=== PATIENT | male | born 1980 | race Caucasian/White ===

== ENCOUNTER 2018-11-01 04:13 | Emergency (ER) | payer MEDICAID, OTHER ==
[~2018-11-01] VITALS: Ht 188 cm; Wt 86.5 kg
[~2018-11-01 04:13] MED LIST: AMOX1TAB10 PO; HYDR-3980 PO
[2018-11-01 04:20] VITALS: BP 146/91; PULSE 100; RESP 20; Ht 188 cm; Wt 86.5 kg
[2018-11-01] MEDS ORDERED: HYDR-4011 PO (07:27)
[2018-11-01] MEDS ORDERED: AMOX1TAB10 PO (07:27)
[2018-11-01] MEDS ORDERED: HYDROCODONE/APAP (5/325) TAB PO ONE (07:30)
--- NOTE | 2018-11-01 07:35 | ERD ---
ER Documentation Chief Complaint Chief Complaint left lower toothache x 2 days HPI This is a 38-year-old male with no severe past medical history who is brought to the ED with complaints of left lower molar pain ongoing for the past 3 days. Pain is described as sharp and throbbing. He denies any radiation of pain. He denies any associated fevers. Denies any drooling, difficulty swallowing or breathing. He states he was seen here 4 months ago for similar symptoms. He has not yet followed up with the dentist but plans to in the next few days. No other complaints. No history of diabetes or any other significant medical history. ROS All systems reviewed and are negative except as per history of present illness. Medications Home Meds Active Scripts Amoxicillin/Potassium Clav (Amox-Clav 875-125 mg Tablet) 875-125 mg Tab, 1 TAB PO BID for 7 Days, #14 TAB Prov:ROSANGELAIGRABHIJIT SMITH N PA-C 11/01/18 Hydrocodone/Acetaminophen ([place] 5-325 Tablet) 1 Each Tablet, 1 TAB PO Q6H PRN for PAIN, #7 TAB Prov:ROSANGELAIGRSUMITANABHIJIT N PA-C 11/01/18 Amoxicillin/Potassium Clav (Amox-Clav 875-125 mg Tablet) 875-125 mg Tab, 1 TAB PO BID for 10 Days, #20 TAB Prov:KAREN MELO MD 06/19/18 Hydrocodone/Acetaminophen ([place] 10-325 Tablet) 1 Each Tablet, 1 TAB PO Q6H PRN for PAIN, #20 TAB Prov:KAREN MELO MD 06/19/18 Allergies Allergies: Coded Allergies: No Known Allergy (Unverified , 06/19/18) PMhx/Soc Hx Alcohol Use: No Hx Substance Use: Yes (MARIJUANA) Hx Tobacco Use: Yes Physical Exam Vitals Vital Signs Date Temp Pulse Resp B/P (MAP) Pulse Ox O2 O2 Flow FiO2 Time Delivery Rate 11/01/18 97.2 100 20 146/91 97 04:20 (109) Physical Exam Const: No acute distress Head: Atraumatic Eyes: Normal Conjunctiva ENT: Normal External Ears, Nose and Mouth. + Moderate tenderness to percussion of tooth #31. Very Poor dentition. No periapical abscess seen. No trismus. No submandibular swelling. Neck: Full range of motion. No meningismus. No lymphadenopathy. Skin: No petechiae or rashes Neur: Awake and alert Psych: Normal Mood and Affect Results 24 hrs Current Medications Medications Dose Sig/Honey Start Time Status Last (Trade) Ordered Route PRN Stop Time Admin Dose Reason Admin 1 tab ONCE ONCE 11/01/18 DC 11/01/18 Acetaminophen PO 07:30 08:27 / 11/01/18 07:31 Hydrocodone Bitart ([place] (5/325)) Procedures/MDM ED COURSE: The patient was given [place]. Patient continued to complain of pain and requesting for Dilaudid. He was unhappy with my evaluation and was cursing upon discharge. MEDICAL DECISION MAKING: This is a 38-year-old male who presents with left lower dental pain. Vital signs are stable and he has no fever here. He is not hypoxic and in no respiratory distress. He has no signs of an apical or periapical abscess on physical exam. Clinical presentation not consistent with Charles's angina, osteomyelitis or any other deep space tissue infection. Will treat prophylactically with antibiotics and pain medications. Patient was asking for Dilaudid. I did not think this was appropriate as patient was already given [place] here. He was given a referral to a dentist to follow-up with in the next few days. Strict return precautions were discussed. Smoking Cessation Therapy: Pt. was lectured for greater than 3 minutes on the health risks of continued smoking and the benefits of cessation. Blood Pressure Assessment: Patient's blood pressure was elevated (>120/80) but appears stable without evidence of hypertension emergency or urgency. The patient was counseled about the risks of hypertension and urged to pursue outpatient monitoring and therapy within a week with their primary care physician. PRESCRIPTIONS: [place], Augmentin SPECIALIST FOLLOW UP RECOMMENDED: Dentist Departure Diagnosis: Primary Impression: Toothache Condition: Stable Patient Instructions: Dental Pain Referrals: NO PRIMARY,CARE PHYSICIAN (PCP) COMMUNITY CLINICS YOU HAVE RECEIVED A MEDICAL SCREENING EXAM AND THE RESULTS INDICATE THAT YOU DO NOT HAVE A CONDITION THAT REQUIRES URGENT TREATMENT IN THE EMERGENCY DEPARTMENT. FURTHER EVALUATION AND TREATMENT OF YOUR CONDITION CAN WAIT UNTIL YOU ARE SEEN IN YOUR DOCTORS OFFICE WITHIN THE NEXT 1-2 DAYS. IT IS YOUR RESPONSIBILITY TO MAKE AN APPOINTMENT FOR FOLOW-UP CARE. IF YOU HAVE A PRIMARY DOCTOR --you should call your primary doctor and schedule an appointment IF YOU DO NOT HAVE A PRIMARY DOCTOR YOU CAN CALL OUR PHYSICIAN REFERRAL HOTLINE AT IF YOU CAN NOT AFFORD TO SEE A PHYSICIAN YOU CAN CHOSE FROM THE FOLLOWING [facility] [address] [place] [facility] [address] [facility] [address] [facility] [address] [facility] [address] [facility]. [facility] [address] [facility]. [facility] YOU HAVE RECEIVED A MEDICAL SCREENING EXAM AND THE RESULTS INDICATE THAT YOU DO NOT HAVE A CONDITION THAT REQUIRES URGENT TREATMENT IN THE EMERGENCY DEPARTMENT. FURTHER EVALUATION AND TREATMENT OF YOUR CONDITION CAN WAIT UNTIL YOU ARE SEEN IN YOUR DOCTORS OFFICE WITHIN THE NEXT 1-2 DAYS. IT IS YOUR RESPONSIBILITY TO MAKE AN APPOINTMENT FOR FOLOW-UP CARE. IF YOU HAVE A PRIMARY DOCTOR --you should call your primary doctor and schedule and appointment IF YOU DO NOT HAVE A PRIMARY DOCTOR YOU CAN CALL OUR PHYSICIAN REFERRAL HOTLINE AT . IF YOU CAN NOT AFFORD TO SEE A PHYSICIAN YOU CAN CHOSE FROM THE FOLLOWING [facility]: [facility] [address] [place] [address] [facility] [address] [place] [address] [facility] [address] [place] [address] [facility] DENTIST ([facility] walk in clinic) Additional Instructions: Do salt water gargles at least 2 times a day. Take the pain medication as needed, and finish the entire course of antibiotics. Please make sure you follow-up with a dentist as soon as possible for your dental pain. If the symptoms get worse and your provider is unavailable, return to the Emergency Department immediately. ABHIJIT TSE PA-C Nov 01, 2018 07:35
== END 2018-11-01 08:55 | disposition home or self-care (01) ==
LOC: FTE 04:13
DX: K08.89 Other specified disorders of teeth and supporting structures (principal); Z87.891 Personal history of nicotine dependence
CPT/HCPCS: 99283

== ENCOUNTER 2018-12-29 00:26 | Inpatient (IN) | payer OTHER ==
[~2018-12-29] VITALS: Ht 188 cm; Wt 95.9 kg
[~2018-12-29 00:26] MED LIST changes: +HYDR-4011 PO
[2018-12-29] MEDS ORDERED: ACETAMINOPHEN 325 MG TAB PO PRN ×2 (01:00→05:30)
[2018-12-29] MEDS ORDERED: ONDANSETRON 4 MG INJ IV PRN ×2 (01:00→05:30)
[2018-12-29] MEDS ORDERED: ONDANSETRON 4 MG INJ IV ONE (01:20)
[2018-12-29] MEDS ORDERED: morphine 4 MG/ML VIAL IV ONE (01:20)
--- NOTE | 2018-12-29 01:37 | ERD ---
ER Documentation Chief Complaint Chief Complaint BIB private EMS for facial abscess HPI This is a 38-year-old male with no reported past medical history who is presenting from [facility], accepted by the panel service here for admission for further assessment of a left facial abscess likely related to a dental abscess of tooth 19. The patient reports 1 to 2 months of waxing and waning progressive worsening left-sided dental pain and swelling. The patient reports worsening symptoms over the last day with significant pain. He also endorses feeling occasionally lightheaded and fatigued. The patient reportedly had chest pain and a syncopal event this morning, which is ultimately what prompted him to come to the emergency department at [facility]. The patient was evaluated fully which included blood work and a CT scan of the face that demonstrated the abscess as described above. The patient was capitated to our facility and ultimately transferred here for admission. The patient received Zosyn prior to transfer. ROS All systems reviewed and are negative except as per history of present illness. Medications Home Meds Active Scripts Amoxicillin/Potassium Clav (Amox-Clav 875-125 mg Tablet) 875-125 mg Tab, 1 TAB PO BID for 7 Days, #14 TAB Prov:ROSANGELAIGRIKIANABHIJIT N PA-C 11/01/18 Hydrocodone/Acetaminophen ([place] 5-325 Tablet) 1 Each Tablet, 1 TAB PO Q6H PRN for PAIN, #7 TAB Prov:DISHIGRIKIANKELUR N PA-C 11/01/18 Amoxicillin/Potassium Clav (Amox-Clav 875-125 mg Tablet) 875-125 mg Tab, 1 TAB PO BID for 10 Days, #20 TAB Prov:KAREN MELO MD 06/19/18 Hydrocodone/Acetaminophen ([place] 10-325 Tablet) 1 Each Tablet, 1 TAB PO Q6H PRN for PAIN, #20 TAB Prov:KAREN MELO MD 06/19/18 Allergies Allergies: Coded Allergies: No Known Allergy (Unverified , 06/19/18) PMhx/Soc Medical and Surgical Hx: pt denies Surgical Hx History of Surgery: No Anesthesia Reaction: No Hx Neurological Disorder: No Hx Respiratory Disorders: No Hx Cardiac Disorders: No Hx Psychiatric Problems: No Hx Miscellaneous Medical Probl: Yes (kidney stones) Hx Alcohol Use: Yes (social) Hx Substance Use: Yes (MARIJUANA) Hx Tobacco Use: Yes Smoking Status: Current every day smoker FmHx Family History: No diabetes Physical Exam Vitals Vital Signs Date Temp Pulse Resp B/P (MAP) Pulse Ox O2 O2 Flow FiO2 Time Delivery Rate 12/29/18 98 20 132/100 98 01:05 (111) Physical Exam Const: No acute distress Head: Atraumatic Eyes: Normal Conjunctiva ENT: Normal External Ears, Nose. Left facial edema and tenderness with a fluctuant mass around the left lateral mandible. Neck: Full range of motion. No meningismus. Resp: Clear to auscultation bilaterally Cardio: Regular rate and rhythm, no murmurs Abd: Soft, non tender, non distended. Normal bowel sounds Skin: No petechiae or rashes Back: No midline or flank tenderness Ext: No cyanosis, or edema Neur: Awake and alert Psych: Normal Mood and Affect Results 24 hrs Current Medications Medications Dose Sig/Honey Start Time Status Last (Trade) Ordered Route PRN Stop Time Admin Dose Reason Admin Ondansetron 4 mg BRIDGE ORDER 12/29/18 HCl (Zofran PRN IV 01:00 Inj) NAUSEA/VOMITI 12/30/18 00:59 NG 650 mg ER BRIDGE 12/29/18 Acetaminophen PRN PO 01:00 (Tylenol .MILD PAIN 12/30/18 00:59 Tab) 1-3 OR TEMP Morphine 4 mg ONCE ONCE 12/29/18 DC 12/29/18 Sulfate IV 01:20 01:26 (morphine) 12/29/18 01:21 Ondansetron 4 mg ONCE ONCE 12/29/18 DC 12/29/18 HCl (Zofran IV 01:20 01:26 Inj) 12/29/18 01:21 Procedures/MDM MDM The patient's presentation warrants further investigation. Previous medical records, if available, were reviewed. LABS The patient's laboratory testing was reviewed from the outside hospital. No emergent treatment was required unless described below. CBC: Leukocytosis, potentially concerning for an infection. No E/o severe anemia or thrombocytopenia Chemistry: No E/o severe acidosis or alkalosis or renal failure. Hyperglycemia without diabetic ketoacidosis Lactate: No E/o severe sepsis Troponin: No E/o acute ischemia IMAGING Radiology interpretation reviewed from the outside facility CT soft tissue face with contrast Left facial abscess associated with an apical dental abscess involving tooth 19 Dictated by Levon Castillo MD at 1749 on December 28, 2018 TREATMENT/DISPOSITION The patient presents for a left facial abscess and dental abscess. He does require ENT assessment. The patient appears to have been appropriately treated thus far at the outside facility. He is not septic and does not require a full septic work-up at this time. The patient was treated with pain and Zofran for symptom control. ADMISSION The patient had already been accepted for admission to panel in accordance with the patient's insurance. The patient was accepted by Dr. Lloyd. The patient is currently pending a bed in the hospital. Disclaimer: Inadvertent spelling and grammatical errors are likely due to EHR/dictation software use and do not reflect on the overall quality of patient care. Note that the electronic time recorded on this note does not necessarily reflect the actual time of the patient encounter. Departure Diagnosis: Primary Impression: Facial abscess Additional Impressions: Dental abscess Leukocytosis Leukocytosis type: unspecified Qualified Codes: D72.829 - Elevated white blood cell count, unspecified Hyperglycemia Condition: Serious GABE BREWSTER MD December 29, 2018 01:37
[2018-12-29] MEDS ORDERED: KETOROLAC 15 MG INJ IV STA (02:34)
[2018-12-29] MEDS ORDERED: ACETAMINOPHEN 325 MG TAB PO ONE (03:00)
[2018-12-29] MEDS ORDERED: FENTAnyl 50 MCG/ML VIAL IV ONE (03:00)
[2018-12-29 03:08] VITALS: BP 140/79; PULSE 98; RESP 18; Ht 188 cm; Wt 95.9 kg
[2018-12-29 03:12] VITALS: BP 140/79; PULSE 98; RESP 20
--- NOTE | 2018-12-29 05:27 | HP ---
Date/Time of Note Date/Time of Note DATE: 12/29/18 TIME: 05:18 Assessment/Plan VTE Prophylaxis Risk score (from Nsg)>0 risk: 0 SCD applied (from Nsg): Yes Pharmacological prophylaxis: heparin Lines/Catheters IV Catheter Type (from Nrsg): Saline Lock Assessment/Plan Assessment/Plan 38-year-old male transferred from [facility] because of insurance reason for left facial cellulitis and tooth abscess. PLAN -CT at the outside facility shows abscess. Seen by ENT who did not think surgical intervention was warranted -Treat with Unasyn -ID consult HPI/ROS Admit Date/Time Admit Date/Time December 29, 2018 at 00:51 Hx of Present Illness This is a 38-year-old male with no significant past medical history who initially presented to [facility] complaining of left facial swelling and dental infection. Tooth infection and left facial swelling have been pro gressively getting worse for about 6 weeks or so. He was treated with Augmentin. CT at the outside facility shows an abscess. He was evaluated by ENT who did not think surgical intervention is warranted. Patient was transferred to [facility] for insurance reasons. Because bed was not available immediately, he was sent to our ER and subsequently got admitted. When he presented to our ER, he had a temp of 100. PMH/Family/Social Past Medical History Medical History: other (see hpi) Medications Current Medications Ondansetron HCl (Zofran Inj) 4 mg BRIDGE ORDER PRN IV NAUSEA/VOMITING; Start 12/29/18 at 01:00; Stop 12/30/18 at 00:59 Acetaminophen (Tylenol Tab) 650 mg ER BRIDGE PRN PO .MILD PAIN 1-3 OR TEMP; Start 12/29/18 at 01:00; Stop 12/30/18 at 00:59 IV Flush (NS 3 ml) 3 ml PER PROTOCOL IV ; Start 12/29/18 at 05:30; Status UNV Ondansetron HCl (Zofran Inj) 4 mg Q6H PRN IV NAUSEA/VOMITING; Start 12/29/18 at 05:30; Status UNV Acetaminophen (Tylenol Tab) 650 mg Q6H PRN PO .PAIN 1-3 OR TEMP; Start 12/29/18 at 05:30; Status UNV Morphine Sulfate (morphine) 3 mg Q4H PRN IV .SEVERE PAIN 7-10; Start 12/29/18 at 05:30; Status UNV Albuterol/ Ipratropium (Duoneb) 3 ml Q2H RESP THERAPY PRN HHN SHORTNESS OF BREATH; Start 12/29/18 at 05:30; Status UNV Ampicillin Sodium/ Sulbactam Sodium 100 ml @ 100 mls/hr Q6 IVPB ; Start 12/29/18 at 06:00; Status UNV Coded Allergies: No Known Allergy (Unverified , 06/19/18) Past Surgical History Past Surgical Hx: other (see hpi) Family History Significant Family History: no pertinent family hx Social History Alcohol Use: occasionally Smoking Status: Never smoker Drug Use: none Exam/Review of Systems Vital Signs Vitals Vital Signs Date Temp Pulse Resp B/P (MAP) Pulse Ox O2 O2 Flow FiO2 Time Delivery Rate 12/29/18 98.0 98 20 140/79 98 03:12 (99) 12/29/18 Room Air 03:08 Intake and Output 12/28/18 12/28/18 12/29/18 1515:00 23:00 07:00 IntakeIntake Total 200 ml BalanceBalance 200 ml Exam Constitutional: alert, oriented Head: normocephalic, atraumatic Eyes: PERRL ENMT: other (left facial swelling) Respiratory: normal air movement Cardiovascular: other (tachycardic) Gastrointestinal: soft Extremities: normal pulses GLADIS DOBBS MD December 29, 2018 05:27
[2018-12-29] MEDS ORDERED: morphine 4 MG/ML VIAL IV PRN (05:30)
[2018-12-29] MEDS ORDERED: NACL 0.9% 3 ML SYG IV SCH (05:30)
[2018-12-29] MEDS ORDERED: ALBUTEROL/IPRATROPIUM (NEB) 3 ML AMP HHN PRN (05:30)
[2018-12-29] MEDS ORDERED: HYDROCODONE/APAP (5/325) TAB PO PRN (05:30)
[2018-12-29] MEDS: AMPICILLIN/SULB 3 GM/NS (PMX) 100 ML IVPB SCH ×4 (05:43→23:24)
[2018-12-29 07:40] VITALS: BP 119/79; PULSE 81; RESP 16
[2018-12-29] MEDS: HYDROCODONE/APAP (5/325) TAB PO PRN ×3 (11:06→22:02)
--- NOTE | 2018-12-29 12:20 | PN ---
Date/Time of Note Date/Time of Note DATE: 12/29/18 TIME: 12:04 Assessment/Plan VTE Prophylaxis Risk score (from Nsg)>0 risk: 0 SCD applied (from Nsg): Yes Pharmacological prophylaxis: other Lines/Catheters IV Catheter Type (from Nrsg): Saline Lock Assessment/Plan Hospital Course S: Patient still complaining of some facial swelling. Has been on IV antibiotics since yesterday. Asking if he can eat regular diet. Waiting to be seen by ID team. Still with some fevers. O: VS- see below PE: Gen: lying in bed, no acute distress Head: Atraumatic Eyes: Normal Conjunctiva ENT: Normal External Ears, Nose. Left facial edema and tenderness with a fluctuant mass around the left lateral mandible. Neck: Full range of motion. No meningismus. Resp: Clear to auscultation bilaterally Cardio: Regular rate and rhythm, no murmurs Abd: Soft, non tender, non distended. Normal bowel sounds Ext: No lower extremity edema bilaterally Neuro: No focal deficits Assessment/Plan: 38-year-old male transferred from [facility] because of insurance reason for left facial cellulitis and tooth abscess, and questionable syncope. #Facial cellulitis: CT at the outside facility shows abscess. Seen by ENT at the outside hospital before transfer, who did not think surgical intervention was warranted. -For now treat with Unasyn -ID consult, follow-up the recommendations -We will keep head of bed elevated greater than 30 degrees and do full liquid diet only until speech therapy eval occurs -Continue pain control with as needed morphine and as needed Clarkson. -For the swelling we will give 1 dose of Solu-Medrol IV # ? syncope: No present issues -Monitor for now, consider PT eval and carotid Dopplers if worsens Result Diagram: 12/29/1837 12/29/1837 Results 24hrs Laboratory Tests Test 12/29/18 05:37 White Blood Count 12.4 H Red Blood Count 4.64 L Hemoglobin 14.7 Hematocrit 43.0 Mean Corpuscular Volume 92.7 Mean Corpuscular Hemoglobin 31.7 Mean Corpuscular Hemoglobin Concent 34.2 Red Cell Distribution Width 12.1 Platelet Count 255 # Mean Platelet Volume 9.2 Immature Granulocytes % 0.600 H Neutrophils % 68.2 Lymphocytes % 21.0 Monocytes % 7.8 Eosinophils % 1.9 Basophils % 0.5 Nucleated Red Blood Cells % 0.0 Immature Granulocytes # 0.070 H Neutrophils # 8.4 H Lymphocytes # 2.6 Monocytes # 1.0 H Eosinophils # 0.2 Basophils # 0.1 Nucleated Red Blood Cells # 0.0 Sodium Level 139 Potassium Level 4.0 Chloride Level 104 Carbon Dioxide Level 29 Anion Gap 6 Blood Urea Nitrogen 14 Creatinine 0.71 Est Glomerular Filtrat Rate mL/min > 60 Glucose Level 128 Calcium Level 8.9 Phosphorus Level 3.6 Magnesium Level 2.2 Total Bilirubin 0.8 Direct Bilirubin 0.00 Indirect Bilirubin 0.8 Aspartate Amino Transf (AST/SGOT) 19 Alanine Aminotransferase (ALT/SGPT) 25 Alkaline Phosphatase 107 Total Protein 6.9 Albumin 3.7 Globulin 3.20 Albumin/Globulin Ratio 1.15 Exam/Review of Systems Exam Vitals Vital Signs Date Temp Pulse Resp B/P (MAP) Pulse Ox O2 O2 Flow FiO2 Time Delivery Rate 12/29/18 98.0 81 16 119/79 100 Room Air 07:40 (92) Intake and Output 12/28/18 12/28/18 12/29/18 1515:00 23:00 07:00 IntakeIntake Total 300 ml BalanceBalance 300 ml Results Results 24hrs Laboratory Tests Test 12/29/18 05:37 White Blood Count 12.4 H Red Blood Count 4.64 L Hemoglobin 14.7 Hematocrit 43.0 Mean Corpuscular Volume 92.7 Mean Corpuscular Hemoglobin 31.7 Mean Corpuscular Hemoglobin Concent 34.2 Red Cell Distribution Width 12.1 Platelet Count 255 # Mean Platelet Volume 9.2 Immature Granulocytes % 0.600 H Neutrophils % 68.2 Lymphocytes % 21.0 Monocytes % 7.8 Eosinophils % 1.9 Basophils % 0.5 Nucleated Red Blood Cells % 0.0 Immature Granulocytes # 0.070 H Neutrophils # 8.4 H Lymphocytes # 2.6 Monocytes # 1.0 H Eosinophils # 0.2 Basophils # 0.1 Nucleated Red Blood Cells # 0.0 Sodium Level 139 Potassium Level 4.0 Chloride Level 104 Carbon Dioxide Level 29 Anion Gap 6 Blood Urea Nitrogen 14 Creatinine 0.71 Est Glomerular Filtrat Rate mL/min > 60 Glucose Level 128 Calcium Level 8.9 Phosphorus Level 3.6 Magnesium Level 2.2 Total Bilirubin 0.8 Direct Bilirubin 0.00 Indirect Bilirubin 0.8 Aspartate Amino Transf (AST/SGOT) 19 Alanine Aminotransferase (ALT/SGPT) 25 Alkaline Phosphatase 107 Total Protein 6.9 Albumin 3.7 Globulin 3.20 Albumin/Globulin Ratio 1.15 Medications Medication Current Medications Ondansetron HCl (Zofran Inj) 4 mg BRIDGE ORDER PRN IV NAUSEA/VOMITING; Start 12/29/18 at 01:00; Stop 12/30/18 at 00:59 Acetaminophen (Tylenol Tab) 650 mg ER BRIDGE PRN PO .MILD PAIN 1-3 OR TEMP; Start 12/29/18 at 01:00; Stop 12/30/18 at 00:59 IV Flush (NS 3 ml) 3 ml PER PROTOCOL IV ; Start 12/29/18 at 05:30 Ondansetron HCl (Zofran Inj) 4 mg Q6H PRN IV NAUSEA/VOMITING; Start 12/29/18 at 05:30 Acetaminophen (Tylenol Tab) 650 mg Q6H PRN PO .PAIN 1-3 OR TEMP; Start 12/29/18 at 05:30 Morphine Sulfate (morphine) 3 mg Q4H PRN IV .SEVERE PAIN 7-10 Last administered on 12/29/18at 07:49; Admin Dose 3 MG; Start 12/29/18 at 05:30 Albuterol/ Ipratropium (Duoneb) 3 ml Q2H RESP THERAPY PRN HHN SHORTNESS OF BREATH; Start 12/29/18 at 05:30 Ampicillin Sodium/ Sulbactam Sodium 100 ml @ 100 mls/hr Q6 IVPB Last administered on 12/29/18at 05:43; Admin Dose 100 MLS/HR; Start 12/29/18 at 06:00 Acetaminophen/ Hydrocodone Bitart ([place] (5/325)) 2 tab Q4H PRN PO MODERATE PAIN LEVEL 4-6 Last administered on 12/29/18at 11:06; Admin Dose 2 TAB; Start 12/29/18 at 05:30 Acetaminophen/ Hydrocodone Bitart ([place] (5/325)) 1 tab Q4H PRN PO MODERATE PAIN LEVEL 4-6; Start 12/29/18 at 05:30 CHERYL SWANSON December 29, 2018 12:15
[2018-12-29] MEDS ORDERED: METHYLPREDNISOLONE 125 MG INJ IV ONE (12:30)
[2018-12-29] MEDS: morphine 2 MG INJ IV PRN ×3 (13:21→21:37)
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
[2018-12-29] MEDS: NICOTINE (21 MG/24 HR) PATCH TRANSDERM SCH (16:30)
[2018-12-29] MEDS ORDERED: LORAZEPAM 2 MG INJ IV PRN (18:00)
[2018-12-29 20:19] VITALS: BP 140/81; PULSE 83; RESP 18
[2018-12-30] MEDS: morphine 2 MG INJ IV PRN ×6 (01:35→22:01)
[2018-12-30 02:24] VITALS: BP 125/79; PULSE 87; RESP 18
[2018-12-30] MEDS: HYDROCODONE/APAP (5/325) TAB PO PRN ×6 (02:31→23:34)
[2018-12-30] MEDS: AMPICILLIN/SULB 3 GM/NS (PMX) 100 ML IVPB SCH ×4 (05:47→23:34)
[2018-12-30 07:51] VITALS: BP 130/81; PULSE 92; RESP 18
[2018-12-30] MEDS: NICOTINE (21 MG/24 HR) PATCH TRANSDERM SCH (08:46)
--- NOTE | 2018-12-30 10:53 | PN ---
Date/Time of Note Date/Time of Note DATE: 12/30/18 TIME: 10:51 Assessment/Plan VTE Prophylaxis Risk score (from Nsg)>0 risk: 0 SCD applied (from Nsg): Yes Pharmacological prophylaxis: other Lines/Catheters IV Catheter Type (from Nrsg): Saline Lock Assessment/Plan Hospital Course S: Tolerating full liquid diet, seen by ID team yesterday. No fevers overnight. Asking if he can eat regular food now. Less swelling noted and less pain. O: VS- see below PE: Gen: lying in bed, no acute distress Head: Atraumatic Eyes: Normal Conjunctiva ENT: Normal External Ears, Nose. Decreased left facial edema and tenderness with less fluctuant mass around the left lateral mandible. Neck: Full range of motion. No meningismus. Resp: Clear to auscultation bilaterally Cardio: Regular rate and rhythm, no murmurs Abd: Soft, non tender, non distended. Normal bowel sounds Ext: No lower extremity edema bilaterally Neuro: No focal deficits Assessment/Plan: 38-year-old male transferred from [facility] because of insurance reason for left facial cellulitis and tooth abscess, and questionable syncope. #Facial cellulitis: CT at the outside facility shows abscess. Seen by ENT at the outside hospital before transfer, who did not think surgical intervention was warranted. -Continue Unasyn -Follow-up further recommendations from ID consult -We will cautiously change diet to regular diet today -Continue pain control with as needed morphine and as needed [place]. # ? syncope: No present issues -Monitor for now, consider PT eval and carotid Dopplers if worsens Dispo: Likely home in 24 hours with antibiotics per ID recommendations if swelling decreases, patient tolerating diet, and case management has set up outpatient dental appointment which the patient really needs given his long- standing tooth abscess issues. Result Diagram: 12/30/18 0434 12/30/18 0434 Results 24hrs Laboratory Tests Test 12/30/18 04:34 White Blood Count 15.5 #H Red Blood Count 4.69 L Hemoglobin 14.9 Hematocrit 43.0 Mean Corpuscular Volume 91.7 Mean Corpuscular Hemoglobin 31.8 Mean Corpuscular Hemoglobin Concent 34.7 Red Cell Distribution Width 11.5 Platelet Count 292 Mean Platelet Volume 9.2 Immature Granulocytes % 0.600 H Neutrophils % 86.7 H Lymphocytes % 8.2 L Monocytes % 4.4 Eosinophils % 0.0 Basophils % 0.1 Nucleated Red Blood Cells % 0.0 Immature Granulocytes # 0.100 H Neutrophils # 13.5 H Lymphocytes # 1.3 Monocytes # 0.7 Eosinophils # 0.0 Basophils # 0.0 Nucleated Red Blood Cells # 0.0 Sodium Level 137 Potassium Level 4.6 Chloride Level 104 Carbon Dioxide Level 26 Anion Gap 7 Blood Urea Nitrogen 12 Creatinine 0.59 L Est Glomerular Filtrat Rate mL/min > 60 Glucose Level 158 Calcium Level 9.3 Phosphorus Level 4.0 Magnesium Level 2.3 Triglycerides Level 57 Cholesterol Level 150 LDL Cholesterol, Calculated 91 HDL Cholesterol 48 Cholesterol/HDL Ratio 3.1 Exam/Review of Systems Exam Vitals Vital Signs Date Temp Pulse Resp B/P (MAP) Pulse Ox O2 O2 Flow FiO2 Time Delivery Rate 12/30/18 98.6 92 18 130/81 99 Room Air 07:51 (97) Intake and Output 12/29/18 12/29/18 12/30/18 1515:00 23:00 07:00 IntakeIntake Total 100 ml 100 ml 500 ml BalanceBalance 100 ml 100 ml 500 ml Results Results 24hrs Laboratory Tests Test 12/30/18 04:34 White Blood Count 15.5 #H Red Blood Count 4.69 L Hemoglobin 14.9 Hematocrit 43.0 Mean Corpuscular Volume 91.7 Mean Corpuscular Hemoglobin 31.8 Mean Corpuscular Hemoglobin Concent 34.7 Red Cell Distribution Width 11.5 Platelet Count 292 Mean Platelet Volume 9.2 Immature Granulocytes % 0.600 H Neutrophils % 86.7 H Lymphocytes % 8.2 L Monocytes % 4.4 Eosinophils % 0.0 Basophils % 0.1 Nucleated Red Blood Cells % 0.0 Immature Granulocytes # 0.100 H Neutrophils # 13.5 H Lymphocytes # 1.3 Monocytes # 0.7 Eosinophils # 0.0 Basophils # 0.0 Nucleated Red Blood Cells # 0.0 Sodium Level 137 Potassium Level 4.6 Chloride Level 104 Carbon Dioxide Level 26 Anion Gap 7 Blood Urea Nitrogen 12 Creatinine 0.59 L Est Glomerular Filtrat Rate mL/min > 60 Glucose Level 158 Calcium Level 9.3 Phosphorus Level 4.0 Magnesium Level 2.3 Triglycerides Level 57 Cholesterol Level 150 LDL Cholesterol, Calculated 91 HDL Cholesterol 48 Cholesterol/HDL Ratio 3.1 Medications Medication Current Medications IV Flush (NS 3 ml) 3 ml PER PROTOCOL IV ; Start 5/26/19 at 05:30 Ondansetron HCl (Zofran Inj) 4 mg Q6H PRN IV NAUSEA/VOMITING; Start 12/29/18 at 05:30 Acetaminophen (Tylenol Tab) 650 mg Q6H PRN PO .PAIN 1-3 OR TEMP; Start 12/29/18 at 05:30 Albuterol/ Ipratropium (Duoneb) 3 ml Q2H RESP THERAPY PRN HHN SHORTNESS OF BREATH; Start 12/29/18 at 05:30 Ampicillin Sodium/ Sulbactam Sodium 100 ml @ 100 mls/hr Q6 IVPB Last administered on 12/30/18at 05:47; Admin Dose 100 MLS/HR; Start 12/29/18 at 06:00 Acetaminophen/ Hydrocodone Bitart ([place] (5/325)) 2 tab Q4H PRN PO MODERATE PAIN LEVEL 4-6 Last administered on 12/30/18at 06:55; Admin Dose 2 TAB; Start 12/29/18 at 05:30 Acetaminophen/ Hydrocodone Bitart ([place] (5/325)) 1 tab Q4H PRN PO MODERATE PAIN LEVEL 4-6; Start 12/29/18 at 05:30 Lidocaine (Xylocaine (Viscous)) 15 ml QID PRN PO PAIN LEVEL 7-10; Start 12/29/18 at 13:30 Nicotine (Nicoderm 21 Mg/ 24hr) 1 patch DAILY TRANSDERM ; Start 12/29/18 at 16:30 Lorazepam (Ativan) 0.5 mg Q6H PRN IV AGITATION; Start 12/29/18 at 18:00 Morphine Sulfate (morphine) 1 mg Q4H PRN IV .SEVERE PAIN 7-10; Start 12/30/18 at 13:30; Status CHERYL AMOR December 30, 2018 10:53
[2018-12-30] MEDS: LIDOCAINE 2% VISC 15 ML CUP PO PRN ×2 (11:55→17:54)
[2018-12-30 13:24] VITALS: BP 140/77; PULSE 107; RESP 19
[2018-12-30 14:45] VITALS: BP 144/77; PULSE 104
--- NOTE | 2018-12-30 15:05 | CONS ---
Assessment/Plan Assessment/Plan Hospital Course (Demo Recall) ID NOTE CURRENT ABX: Unasyn IV 12/30/18 0434 12/30/18 0434 24H INTERVAL SUMMARY * Dramatic improvement in 24H on Unasyn -- facial edema/erythema has improved by ~50% * Patient is restless in bed dreaming -- I woke him up he was talking in his s leep "I don't want to go to school" * He is feeling much better, yet still reporting pain, VSS, no fevers, WBC increased today MICRO * (-) MRSA Nares EXAM Constitutional: alert, oriented, well developed, distress Psych: other == cooperative, calm, polite No nl mood/affect, No confusion, No suicidal Head: normocephalic, atraumatic Eyes: nl conjunctiva, EOMI, nl sclera ENMT: Dramatic improvement in 24H on Unasyn -- facial edema/erythema has im proved by ~50% Neck: supple, non-tender Respiratory: clear to auscultation, normal air movement, congested cough, crackles/rales, diminished breath sounds; No labored breathing, No wheezing Cardiovascular: regular rate and rhythm, other (Mild tachycardia likely du to pain ) Gastrointestinal: soft, non-tender Genitourinary - Male: other (Deferred) Musculoskeletal: nl extremities to inspection Extremities: normal pulses; No cyanosis, No edema Neurological: [employer] II-XII intact, nl mental status (Cooperative mood and affect, polite), other (Reporting severe dental and left facial pain ) Lymph: other (Left submandibular and facial tight edema makes assessment of submandibular lymph nodes too painful - palpation deferred due to severe patient distress ) ID ASSESSMENT 38 yo M admit with: 1. Recurrent and progressive complex tooth #19 dental infection with dental abscess and left mandibular facial cellulitis. * Dramatic improvement in 24H on Unasyn -- facial edema/erythema has improved by ~50% * Dental infection onset JUN 2018 w/local tooth fracture due to facial trauma * Multiple barriers to outpatient dental / endodontic provider care due to limites of Medical provider options/availability 2. SIRS with subjective fevers/chills, profound weakness, near syncope vs syncope in setting of infection * Presumptive early sepsis -> Blood cx 12/28/18 obtained @ [facility] ED and are pending. 3. Inability to take PO fluids due to #1 => RESOLVED 4. Severe dental/facial pain due to #1 5. Epigastric pain = atypical chest pain per ED provider notes @ [place], patient denied current pain 6. Tobaccoism 7. Situational stress reaction w/irritability and mild anxiety due to recurrent severity of this problem, loss of wages missing work, pain, critical illness * Patient is cooperative, polite, requesting assistance with negotiating outpatient dental appointment prior to DC (-)MRSA nares INVASIVES: PIV ABX ALLERGIES: KNDA CURRENT ABX: Unasyn IV ID INITIAL RECOMMENDATIONS 1. Excellent response to Unasyn 2. Patient may DC on Augmentin 875mg po Q12H x 14 day supply w/refills * = he needs enough ABX to get him to outpatient dental appointment with extra supply in the event appointment is not arranged within 14 day ABX course as infection is likely to return. 3. Appreciate [employer] consult -- working on securing an appointment with [facility] for tooth extraction vs temple 4. Smoking cessation strongly advocated * Consider Nicotine patch while inpatient stay to assist w/potential nicotine withdrawal during acute pain/illness . Consultation Date/Type/Reason Admit Date/Time December 29, 2018 at 00:51 Initial Consult Date 12/29/18 Type of Consult INFECTIOUS DISEASES *Thank you for the privilege of ID consultation referral Date/Time of Note DATE: 12/30/18 TIME: 14:54 Exam/Review of Systems Exam Vitals Vital Signs Date Temp Pulse Resp B/P (MAP) Pulse Ox O2 O2 Flow FiO2 Time Delivery Rate 12/30/18 97.5 104 144/77 14:45 (99) 12/30/18 98 Room Air 13:24 Intake and Output 12/29/18 12/29/18 12/30/18 1515:00 23:00 07:00 IntakeIntake Total 100 ml 100 ml 500 ml BalanceBalance 100 ml 100 ml 500 ml Results Result Diagram: 12/30/18 0434 12/30/18 0434 Results 24hrs Laboratory Tests Test 12/30/18 04:34 White Blood Count 15.5 #H Red Blood Count 4.69 L Hemoglobin 14.9 Hematocrit 43.0 Mean Corpuscular Volume 91.7 Mean Corpuscular Hemoglobin 31.8 Mean Corpuscular Hemoglobin Concent 34.7 Red Cell Distribution Width 11.5 Platelet Count 292 Mean Platelet Volume 9.2 Immature Granulocytes % 0.600 H Neutrophils % 86.7 H Lymphocytes % 8.2 L Monocytes % 4.4 Eosinophils % 0.0 Basophils % 0.1 Nucleated Red Blood Cells % 0.0 Immature Granulocytes # 0.100 H Neutrophils # 13.5 H Lymphocytes # 1.3 Monocytes # 0.7 Eosinophils # 0.0 Basophils # 0.0 Nucleated Red Blood Cells # 0.0 Sodium Level 137 Potassium Level 4.6 Chloride Level 104 Carbon Dioxide Level 26 Anion Gap 7 Blood Urea Nitrogen 12 Creatinine 0.59 L Est Glomerular Filtrat Rate mL/min > 60 Glucose Level 158 Calcium Level 9.3 Phosphorus Level 4.0 Magnesium Level 2.3 Triglycerides Level 57 Cholesterol Level 150 LDL Cholesterol, Calculated 91 HDL Cholesterol 48 Cholesterol/HDL Ratio 3.1 Medications Medication Current Medications IV Flush (NS 3 ml) 3 ml PER PROTOCOL IV ; Start 12/29/18 at 05:30 Ondansetron HCl (Zofran Inj) 4 mg Q6H PRN IV NAUSEA/VOMITING; Start 12/29/18 at 05:30 Acetaminophen (Tylenol Tab) 650 mg Q6H PRN PO .PAIN 1-3 OR TEMP; Start 12/29/18 at 05:30 Albuterol/ Ipratropium (Duoneb) 3 ml Q2H RESP THERAPY PRN HHN SHORTNESS OF BREATH; Start 12/29/18 at 05:30 Ampicillin Sodium/ Sulbactam Sodium 100 ml @ 100 mls/hr Q6 IVPB Last administered on 12/30/18at 11:52; Admin Dose 100 MLS/HR; Start 12/29/18 at 06:00 Acetaminophen/ Hydrocodone Bitart ([place] (5/325)) 2 tab Q4H PRN PO MODERATE PAIN LEVEL 4-6 Last administered on 12/30/18at 11:05; Admin Dose 2 TAB; Start 12/29/18 at 05:30 Acetaminophen/ Hydrocodone Bitart ([place] (5/325)) 1 tab Q4H PRN PO MODERATE P AIN LEVEL 4-6; Start 12/29/18 at 05:30 Lidocaine (Xylocaine (Viscous)) 15 ml QID PRN PO PAIN LEVEL 7-10 Last administered on 12/30/18at 11:55; Admin Dose 15 ML; Start 12/29/18 at 13:30 Nicotine (Nicoderm 21 Mg/ 24hr) 1 patch DAILY TRANSDERM ; Start 12/29/18 at 16:30 Lorazepam (Ativan) 0.5 mg Q6H PRN IV AGITATION; Start 12/29/18 at 18:00 Morphine Sulfate (morphine) 1 mg Q4H PRN IV .SEVERE PAIN 7-10 Last administered on 12/30/18at 14:05; Admin Dose 1 MG; Start 12/30/18 at 13:30 GIO XIE NP December 30, 2018 15:05
[2018-12-30 20:15] VITALS: BP 137/82; PULSE 101; RESP 18
[2018-12-31] MEDS: morphine 2 MG INJ IV PRN ×4 (02:03→15:23)
[2018-12-31 02:52] VITALS: BP 141/86; PULSE 100; RESP 19
[2018-12-31] MEDS: AMPICILLIN/SULB 3 GM/NS (PMX) 100 ML IVPB SCH ×2 (05:19→12:49)
[2018-12-31] MEDS: HYDROCODONE/APAP (5/325) TAB PO PRN ×3 (05:20→13:21)
[2018-12-31 07:50] VITALS: BP 128/88; PULSE 99; RESP 18
[2018-12-31] MEDS: NICOTINE (21 MG/24 HR) PATCH TRANSDERM SCH (09:00)
[2018-12-31] MEDS ORDERED: SENN-120 PO (13:56)
--- NOTE | 2018-12-31 13:58 | PDOCDIS ---
Discharge Instructions DIAGNOSIS Discharge Diagnosis Dental abscess CONDITION [id number] Patient Condition: [id number] Good HOME CARE INSTRUCTIONS: [id number] Diet Instructions: [id number] Regular ACTIVITY: Onypg6Hv Activity Restrictions: [id number] Slowly Increase Activity Rest between Activity Avoid heavy lifting Avoid Heavy Housework [id number] Bathing Restrictions: [id number] Shower FOLLOW UP/APPOINTMENTS Follow-up Plan 1. Make an appointment with a dentist as soon as possible. You'll need the tooth removed. 2. Continue your course of oral antibiotics as prescribed. 3. For pain, take tylenol or ibuprofen. You can also apply a warm compress to your face. 4. For refractory pain take [place] as prescribed. Don't drink alcohol or drive after taking [place]. STACI POTTER MD December 31, 2018 13:58
[2018-12-31] MEDS ORDERED: SENNA TAB PO PRN (14:00)
--- NOTE | 2018-12-31 14:35 | CONS ---
Assessment/Plan Assessment/Plan Hospital Course (Demo Recall) Patient is alert feels much better, no fevers overnight facial swelling resolved WBC today 8.5 no shift no bands BUN 21 creatinine 0.81 Antimicrobials: Unasyn Physical examination: Well-developed middle-aged man who is alert in no distress. Head atraumatic normocephalic neck is supple chest rise symmetrical breath sounds clear. Heart: S1-S2. Abdomen soft bowel sounds present. Extremities without cyanosis. Assessment: 1. Resolving facial cellulitis secondary to dental infection Plan: Patient is stable overall doing much better, anticipate discharge on oral Augmentin for 14 days, follow-up with a dentist Consultation Date/Type/Reason Admit Date/Time December 29, 2018 at 00:51 Initial Consult Date 12/29/18 Type of Consult id Date/Time of Note DATE: 12/31/18 TIME: 14:34 Exam/Review of Systems Exam Vitals Vital Signs Date Temp Pulse Resp B/P (MAP) Pulse Ox O2 O2 Flow FiO2 Time Delivery Rate 12/31/18 98.2 99 18 128/88 93 Room Air 07:50 (101) Intake and Output 12/30/18 12/30/18 12/31/18 1515:00 23:00 07:00 IntakeIntake Total 600 ml 100 ml 200 ml BalanceBalance 600 ml 100 ml 200 ml Results Result Diagram: 12/31/18 0436 12/31/18 0436 Results 24hrs Laboratory Tests Test 12/31/18 04:36 White Blood Count 8.5 # Red Blood Count 4.38 L Hemoglobin 13.8 L Hematocrit 40.8 L Mean Corpuscular Volume 93.2 Mean Corpuscular Hemoglobin 31.5 Mean Corpuscular Hemoglobin Concent 33.8 Red Cell Distribution Width 11.9 Platelet Count 241 Mean Platelet Volume 9.2 Immature Granulocytes % 0.100 Neutrophils % 52.1 Lymphocytes % 38.6 Monocytes % 7.6 Eosinophils % 0.8 Basophils % 0.8 Nucleated Red Blood Cells % 0.0 Immature Granulocytes # 0.010 Neutrophils # 4.4 Lymphocytes # 3.3 H Monocytes # 0.7 Eosinophils # 0.1 Basophils # 0.1 Nucleated Red Blood Cells # 0.0 Sodium Level 140 Potassium Level 4.1 Chloride Level 106 Carbon Dioxide Level 29 Anion Gap 5 Blood Urea Nitrogen 21 H Creatinine 0.81 Est Glomerular Filtrat Rate mL/min > 60 Glucose Level 151 Calcium Level 8.4 Phosphorus Level 3.9 Magnesium Level 2.1 Medications Medication Current Medications IV Flush (NS 3 ml) 3 ml PER PROTOCOL IV ; Start 12/29/18 at 05:30 Ondansetron HCl (Zofran Inj) 4 mg Q6H PRN IV NAUSEA/VOMITING; Start 12/29/18 at 05:30 Acetaminophen (Tylenol Tab) 650 mg Q6H PRN PO .PAIN 1-3 OR TEMP; Start 12/29/18 at 05:30 Albuterol/ Ipratropium (Duoneb) 3 ml Q2H RESP THERAPY PRN HHN SHORTNESS OF BREATH; Start 12/29/18 at 05:30 Ampicillin Sodium/ Sulbactam Sodium 100 ml @ 100 mls/hr Q6 IVPB Last administered on 12/31/18at 12:49; Admin Dose 100 MLS/HR; Start 12/29/18 at 06:00 Acetaminophen/ Hydrocodone Bitart ([place] (5/325)) 2 tab Q4H PRN PO MODERATE PAIN LEVEL 4-6 Last administered on 12/31/18at 13:21; Admin Dose 2 TAB; Start 12/29/18 at 05:30 Acetaminophen/ Hydrocodone Bitart ([place] (5/325)) 1 tab Q4H PRN PO MODERATE PAIN LEVEL 4-6; Start 12/29/18 at 05:30 Lidocaine (Xylocaine (Viscous)) 15 ml QID PRN PO PAIN LEVEL 7-10 Last administered on 12/30/18at 17:54; Admin Dose 15 ML; Start 12/29/18 at 13:30 Nicotine (Nicoderm 21 Mg/ 24hr) 1 patch DAILY TRANSDERM ; Start 12/29/18 at 16:30 Lorazepam (Ativan) 0.5 mg Q6H PRN IV AGITATION; Start 12/29/18 at 18:00 Morphine Sulfate (morphine) 1 mg Q4H PRN IV .SEVERE PAIN 7-10 Last administered on 12/31/18at 12:06; Admin Dose 1 MG; Start 12/30/18 at 13:30 Senna (Senokot) 2 tab BID PRN PO CONSTIPATION; Start 12/31/18 at 14:00 MILA KOVACS NP December 31, 2018 14:35
--- NOTE | 2018-12-31 17:37 | DS ---
Date/Time of Note Date/Time of Note DATE: 12/31/18 TIME: 17:36 Discharge Summary Admission/Discharge Info Admit Date/Time December 29, 2018 at 00:51 Discharge Date/Time December 31, 2018 Discharge Diagnosis Dental abscess Hx of Present Illness This is a 38-year-old male with no significant past medical history who initially presented to [facility] complaining of left facial swelling and dental infection. Tooth infection and left facial swelling have been progressively getting worse for about 6 weeks or so. He was treated with Augmentin. CT at the outside facility shows an abscess. He was evaluated by ENT who did not think surgical intervention is warranted. Patient was transferred to [facility] for insurance reasons. Because bed was not available immediately, he was sent to our ER and subsequently got admitted. When he presented to our ER, he had a temp of 100. Hospital Course He was continued on antibiotics for a few days. Also was given IV morphine. When swelling improved he was able to tolerate regular diet. Discharged on [place] and Augmentin. Home Meds Active Scripts Sennosides* (Senna Lax*) 8.6 Mg Tablet, 2 TAB PO BID PRN for CONSTIPATION, #60 TAB Prov:STACI POTTER MD 12/31/18 Hydrocodone/Acetaminophen ([place] 5-325 Tablet) 1 Each Tablet, 1 TAB PO Q6H PRN for PAIN, #7 TAB Prov:ABHIJIT TSE PA-C 11/01/18 Amoxicillin/Potassium Clav (Amox-Clav 875-125 mg Tablet) 875-125 mg Tab, 1 TAB PO BID for 10 Days, #20 TAB Prov:KAREN MELO MD 06/19/18 Discontinued Scripts Amoxicillin/Potassium Clav (Amox-Clav 875-125 mg Tablet) 875-125 mg Tab, 1 TAB PO BID for 7 Days, #14 TAB Prov:ABHIJIT TSE-C 11/01/18 Hydrocodone/Acetaminophen ([place] 10-325 Tablet) 1 Each Tablet, 1 TAB PO Q6H PRN for PAIN, #20 TAB Prov:KAREN MELO MD 06/19/18 Follow-up Plan 1. Make an appointment with a dentist as soon as possible. You'll need the tooth removed. 2. Continue your course of oral antibiotics as prescribed. 3. For pain, take tylenol or ibuprofen. You can also apply a warm compress to your face. 4. For refractory pain take [place] as prescribed. Don't drink alcohol or drive after taking [place]. Primary Care Provider [facility] Time spent on discharge: > 30 minutes Pending Labs Laboratory Tests Test 12/31/18 04:36 White Blood Count 8.5 10^3/ul (4.8-10.8) Red Blood Count 4.38 10^6/ul (4.70-6.10) Hemoglobin 13.8 g/dl (14.0-18.0) Hematocrit 40.8 % (42.0-52.0) Mean Corpuscular Volume 93.2 fl (82.0-101.0) Mean Corpuscular Hemoglobin 31.5 pg (29.0-33.0) Mean Corpuscular Hemoglobin Concent 33.8 g/dl (32.0-37.0) Red Cell Distribution Width 11.9 % (11.5-14.5) Platelet Count 241 10^3/UL (140-415) Mean Platelet Volume 9.2 fl (7.4-10.4) Immature Granulocytes % 0.100 % (0.001-0.429) Neutrophils % 52.1 % (39.0-77.0) Lymphocytes % 38.6 % (15.0-51.0) Monocytes % 7.6 % (0.0-11.0) Eosinophils % 0.8 % (0.0-7.0) Basophils % 0.8 % (0.0-2.0) Nucleated Red Blood Cells % 0.0 /100WBC (0.0-0.0) Immature Granulocytes # 0.010 10^3/ul (0.0-0.031) Neutrophils # 4.4 10^3/ul (1.6-7.5) Lymphocytes # 3.3 10^3/ul (0.8-2.9) Monocytes # 0.7 10^3/ul (0.3-0.9) Eosinophils # 0.1 10^3/ul (0.0-0.5) Basophils # 0.1 10^3/ul (0.0-0.1) Nucleated Red Blood Cells # 0.0 10^3/ul (0.0-0.0) Sodium Level 140 mmol/L (135-144) Potassium Level 4.1 mmol/L (3.5-5.1) Chloride Level 106 mmol/L (97-110) Carbon Dioxide Level 29 mmol/L (21-31) Anion Gap 5 (5-13) Blood Urea Nitrogen 21 mg/dl (7-20) Creatinine 0.81 mg/dl (0.61-1.24) Est Glomerular Filtrat Rate mL/min > 60 mL/min (>60) Glucose Level 151 mg/dl (70-220) Calcium Level 8.4 mg/dl (8.4-10.2) Phosphorus Level 3.9 mg/dl (2.5-4.9) Magnesium Level 2.1 mg/dl (1.7-2.5) STACI POTTER MD December 31, 2018 17:37
== END 2018-12-31 17:10 | disposition home or self-care (01) | DRG 159 ==
LOC: E/R 00:26 → MS1 00:51
PROVIDERS: ADMIT Internal Medicine; ATTEND Internal Medicine
DX: K04.7 Periapical abscess without sinus (principal); R73.9 Hyperglycemia, unspecified; F17.200 Nicotine dependence, unspecified, uncomplicated
CPT/HCPCS: 80048; 80053; 80061; 83036; 83735; 84100; 84443; 85025; 87081; 92610; J0295; J1885; J2270; J2405; J2930; J3010

== ENCOUNTER 2019-02-24 01:15 | Emergency (ER) | payer OTHER ==
[~2019-02-24] VITALS: Ht 188 cm; Wt 97.3 kg
[~2019-02-24 01:15] MED LIST changes: -HYDR-3980 PO; +IBUP-1542 PO; +MUPI22OI2 TOP; +SENN-120 PO
[2019-02-24 01:19] VITALS: Ht 188 cm; Wt 97.3 kg
[2019-02-24] MEDS ORDERED: KETOROLAC 30 MG INJ IV STA (01:49)
[2019-02-24] MEDS ORDERED: SOD CHLORIDE 0.9% 1,000 ML IV ONE (02:00)
[2019-02-24 04:30] VITALS: BP 120/90; PULSE 77; RESP 18
--- NOTE | 2019-02-24 05:39 | ERD ---
ER Documentation Chief Complaint Chief Complaint left leg swelling from ankle down, with possible bug bite, swelling worsens HPI History of Present Illness: 1-year-old male who denies a past medical history coming in today due to complaint of left ankle swelling and bug bites. Patient reports noticing the symptoms yesterday morning and they have increased. Patient reports he is also experiencing midsternal chest pain that has been present since yesterday morning as well. At home pharmacological/nonpharmacological treatment for symptoms: Denies Denies social concerns; Denies recent foreign travel ROS All systems reviewed and are negative except as per history of present illness. Medications Home Meds Active Scripts Mupirocin* (Bactroban*) 2% -22 Gram Oint...g., 1 APPLIC TOP BID for 7 Days, EA Prov:CARSON NICOLE NP 02/24/19 Ibuprofen* (Motrin*) 600 Mg Tab, 600 MG PO Q6H PRN for PAIN AND OR ELEVATED TEMP, #30 TAB Prov:CARSON NICOLE NP 02/24/19 Sennosides* (Senna Lax*) 8.6 Mg Tablet, 2 TAB PO BID PRN for CONSTIPATION, #60 TAB Prov:STACI POTTER MD 12/31/18 Hydrocodone/Acetaminophen ([place] 5-325 Tablet) 1 Each Tablet, 1 TAB PO Q6H PRN for PAIN, #7 TAB Prov:ABHIJIT TSE PA-C 11/01/18 Amoxicillin/Potassium Clav (Amox-Clav 875-125 mg Tablet) 875-125 mg Tab, 1 TAB PO BID for 10 Days, #20 TAB Prov:KAREN MELO MD 06/19/18 Allergies Allergies: Coded Allergies: No Known Allergy (Unverified , 02/24/19) PMhx/Soc History of Surgery: No Anesthesia Reaction: No Hx Neurological Disorder: No Hx Respiratory Disorders: No Hx Cardiac Disorders: No Hx Psychiatric Problems: No Hx Miscellaneous Medical Probl: No Hx Alcohol Use: No Hx Substance Use: No Hx Tobacco Use: No Smoking Status: Never smoker FmHx Family History: No diabetes, No coronary disease Physical Exam Vitals Vital Signs Date Temp Pulse Resp B/P (MAP) Pulse Ox O2 O2 Flow FiO2 Time Delivery Rate 02/24/19 98.0 77 18 120/90 100 04:30 (100) 7/22/19 98.4 86 16 141/91 96 01:19 (108) Physical Exam Const: No acute distress, afebrile Head: Atraumatic Eyes: Normal Conjunctiva ENT: Normal External Ears, Nose and Mouth. Neck: Full range of motion. No meningismus. Resp: Clear to auscultation bilaterally Cardio: Regular rate and rhythm, no murmurs Abd: Soft, non tender, non distended. No guarding, no masses, no rigidity Skin: No petechiae or rashes; Back: No midline or flank tenderness skin findings consistent with possible insect bites present to left lower extremity, no signs of infection Ext: No cyanosis, or edema; mild swelling noted to left ankle, no deformity, mild tenderness to palpation; Neur: Awake and alert x3, speaking in clear sentences, no focal deficits or facial asymmetry Psych: Normal Mood and Affect Result Diagram: 02/24/1922602/24/19226 Results 24 hrs Laboratory Tests Test 02/24/19 02:27 02/24/19 03:40 White Blood Count 8.1 10^3/ul Red Blood Count 4.34 10^6/ul Hemoglobin 13.7 g/dl Hematocrit 39.2 % Mean Corpuscular Volume 90.3 fl Mean Corpuscular Hemoglobin 31.6 pg Mean Corpuscular Hemoglobin Concent 34.9 g/dl Red Cell Distribution Width 11.9 % Platelet Count 214 10^3/UL Mean Platelet Volume 9.0 fl Immature Granulocytes % 0.200 % Neutrophils % 50.5 % Lymphocytes % 34.7 % Monocytes % 10.3 % Eosinophils % 3.7 % Basophils % 0.6 % Nucleated Red Blood Cells % 0.0 /100WBC Immature Granulocytes # 0.020 10^3/ul Neutrophils # 4.1 10^3/ul Lymphocytes # 2.8 10^3/ul Monocytes # 0.8 10^3/ul Eosinophils # 0.3 10^3/ul Basophils # 0.1 10^3/ul Nucleated Red Blood Cells # 0.0 10^3/ul Prothrombin Time 12.9 Sec Prothrombin Time Ratio 1.0 INR International Normalized Ratio 0.96 Activated Partial Thromboplast Time 30.9 Sec Sodium Level 140 mmol/L Potassium Level 3.7 mmol/L Chloride Level 101 mmol/L Carbon Dioxide Level 31 mmol/L Anion Gap 8 Blood Urea Nitrogen 15 mg/dl Creatinine 0.94 mg/dl Est Glomerular Filtrat Rate mL/min > 60 mL/min Glucose Level 109 mg/dl Calcium Level 9.8 mg/dl Total Bilirubin 0.4 mg/dl Direct Bilirubin 0.00 mg/dl Indirect Bilirubin 0.4 mg/dl Aspartate Amino Transf (AST/SGOT) 21 IU/L Alanine Aminotransferase (ALT/SGPT) 38 IU/L Alkaline Phosphatase 90 IU/L Creatine Kinase 73 IU/L Creatine Kinase Index 1.1 Creatinine Kinase MB (Mass) 0.81 ng/ml Troponin I < 0.012 ng/ml Total Protein 6.9 g/dl Albumin 3.9 g/dl Globulin 3.00 g/dl Albumin/Globulin Ratio 1.30 Lipase 105 U/L Urine Color YELLOW Urine Clarity CLEAR Urine pH 6.0 Urine Specific [place] 1.011 Urine Ketones NEGATIVE mg/dL Urine Nitrite NEGATIVE mg/dL Urine Bilirubin NEGATIVE mg/dL Urine Urobilinogen 1+ mg/dL Urine Leukocyte Esterase NEGATIVE [place]/ul Urine Hemoglobin NEGATIVE mg/dL Urine Glucose NEGATIVE mg/dL Urine Total Protein NEGATIVE mg/dl Urine Opiates Screen Negative Urine Barbiturates Negative Urine Amphetamines Screen Negative Urine Benzodiazepines Screen Negative Urine Cocaine Screen Positive Urine Cannabinoids Negative Current Medications Medications Dose Sig/Honey Start Time Status Last (Trade) Ordered Route PRN Stop Time Admin Dose Reason Admin Sodium 1,000 ml @ Q1H ONCE 02/24/19 DC 02/24/19 Chloride 1,000 mls/hr IV 02:00 02:33 02/24/19 02:59 Ketorolac 30 mg ONCE STAT 02/24/19 DC 02/24/19 Tromethamine IV 01:49 02:33 (Toradol) 02/24/19 01:52 Procedures/MDM ED COURSE: ED course includes a thorough examination and history. The patient was stable throughout ED course. I kept the patient and/or family informed of laboratory and diagnostic imaging results throughout the ED course. LABS: CBC: no e/o of systemic infection or severe anemia CMP: no e/o severe acidosis, alkalosis, renal failure, diabetic ketoacidosis, liver disease CK, CK-MB, troponin, lipase within normal limits Coagulation studies within normal limits UDS positive for cocaine Urinalysis negative MEDICATIONS GIVEN IN ER: Ketorolac Patient tolerated medication well with no adverse reactions. Patient reported improvement in pain. DIAGNOSTIC IMAGING: EKG: Read by Dr. ARNETT, ED attending physician. EKG shows normal sinus rhythm at a rate of 82. No arrhythmias, acute ST elevations or T wave changes were noted. PROCEDURES: None. MEDICAL DECISION MAKING: Low suspicion for life-threatening medical emergency. Low suspicion for cardiac emergency including NSTEMI, STEMI. Low suspicion for infectious process Otherwise healthy patient presenting with constellation of symptoms likely representing chest pain, cocaine abuse, insect bite, left ankle pain as characterized by history, physical exam findings, lab findings, imaging findings. Patient reassessment @ 0343: Results discussed. No physical signs of pain. Pa tient sleeping and snoring. Patient is requesting stronger pain medications. There is no clinical indications. Patient was not honest about drug use. Discharge orders have been placed. No clinical need for additional troponin as pain has been present for over 12 hours and there should be a elevated troponin if this was a an STEMI. Patient hemodynamically stable. No respiratory distress, otherwise relatively well appearing and nontoxic. Disposition given. Patient educated on diagnoses, prescriptions, follow-up care, return precautions. Strict return precautions given for worsening condition; questions answered discharge. Patient verbalizes understanding of discharge instructions. PRESCRIPTIONS FOR HOME: Ibuprofen DISPOSITION: DISCHARGE At this time, patient is stable for discharge and outpatient management. I have instructed the patient to follow-up with his/her primary care physician in 1-2 days. I have discussed with the patient the possibility of needing to see a specialist for further workup and imaging studies if symptoms persist. I have instructed the patient to promptly return to the ER for any new or worsening symptoms including increased pain, fever, nausea, vomiting, weakness or LOC. The patient and/or family expressed understanding of and agreement with this plan. All questions were answered. Home care instructions were provided. DISCLAIMER: Inadvertent spelling and grammatical errors are likely due to EHR/dictation software use and do not reflect on the overall quality of patient care. Also, please note that the electronic time recorded on this note does not necessarily reflect the actual time of the patient encounter. Departure Diagnosis: Primary Impression: Chest pain Additional Impressions: Ankle swelling Bug bite Condition: Stable Patient Instructions: Chest Pain, Uncertain Cause, Allergic Reaction, Insect (Local) Additional Instructions: Thank you very much for allowing us to participate in your care. Your health and safety is our top priority at [facility]. It is important to read all discharge instructions and education provided in your discharge packet. Call your primary care doctor TOMORROW for an appointment during the next 2-4 days and bring all the information and medications prescribed. Have prescriptions filled and follow precisely the directions on the label. If the symptoms get worse and your provider is unavailable, return to the Em ergency Department immediately. CARSON NICOLE NP Feb 24, 2019 05:30
== END 2019-02-24 04:31 | disposition home or self-care (01) ==
LOC: FTE 01:15
DX: S90.562A Insect bite (nonvenomous), left ankle, initial encounter (principal); M25.472 Effusion, left ankle; R07.9 Chest pain, unspecified; W57.XXXA Bitten or stung by nonvenomous insect and other nonvenomous arthropods, initial encounter; Y92.9 Unspecified place or not applicable
CPT/HCPCS: 71045; 73610; 80053; 80307; 81003; 82550; 82553; 83690; 84484; 85025; 85610; 85730; 93005; 96361; 96374; J1885; J7030; Z7502